=== PATIENT | male | born 1950 | race Caucasian/White ===

== ENCOUNTER 2022-12-28 14:35 | Inpatient (IN) | payer OTHER ==
[2022-12-28 17:02] LABS: BASO % 0.6 % (0-2.0); EOS % 0.2 % (0-4.5); HEMATOCRIT 41.3 % (35.4-49); HEMOGLOBIN 13.4 GM/dL (11.7-16.9); LYMPH % 13.9 % (8-40); MCH 30.3 pg (25.7-33.7); MCHC 32.4 g/dl (32.0-35.9); MEAN CELL VOLUME 93.4 fl (80-96); MEAN PLT VOLUME 8.9 fl (7.5-11.1); MONO % 6.9 % (3.8-10.2); NEUT % 78.4 % (42.8-82.8); PLATELET COUNT 156 10^3/uL (134-434); RBC 4.42 M/mm3 (4.00-5.60); WHITE BLOOD COUNT 6.9 K/mm3 (4.0-10.0)
[2022-12-28 17:12] LABS: CHLORIDE 105 mmol/L (98-107); POTASSIUM 4.4 mmol/L (3.5-5.1); SODIUM 141 mmol/L (136-145)
[2022-12-28 17:16] LABS: ALBUMIN 3.7 g/dl (3.4-5.0); ANION GAP 12 MMOL/L (8-16); CALCIUM 10.1 mg/dL (8.5-10.1); CO2 23 mmol/L (21-32); GLUCOSE,RANDOM 89 mg/dL (74-106)
[2022-12-28 17:17] LABS: BLOOD UREA NITROGEN 20.6 mg/dL (7-18)
[2022-12-28 17:19] LABS: CREATININE 2.3 mg/dL (0.55-1.3); SGPT/ALT 12 U/L (13-61)
[2022-12-28 17:20] LABS: SGOT/AST 12 U/L (15-37)
[2022-12-28 17:21] LABS: BILIRUBIN,TOTAL 0.9 mg/dL (0.2-1); TOT PROT 7.9 g/dl (6.4-8.2)
[2022-12-28 17:22] LABS: ALK PHOS 83 U/L (45-117)
[2022-12-28] MEDS ORDERED: LACTATED RINGERS SOLUTION 1000 ML INFUS.BAG IV ONE (17:27)
[2022-12-28] MEDS ORDERED: MAGNESIUM SULF 50% (8.12 MEQ/2 ML-1 GM VIAL) IVPB ONE (17:33)
[2022-12-28] MEDS ORDERED: MAGNESIUM SULF 50% (8.12 MEQ/2 ML-1 GM VIAL) ONE (17:45)
[2022-12-28] MEDS ORDERED: LORazepam 2 MG/ML SDV VIAL IVPUSH ONE (21:22)
[2022-12-28] MEDS ORDERED: LORazepam 1 MG TABLET PO PRN (21:24)
[2022-12-28] MEDS ORDERED: THIAMINE HCL 200 MG/2 ML VIAL ONE (21:36)
[2022-12-28] MEDS ORDERED: FOLIC ACID 1 MG TABLET (FP) ONE (21:37)
[2022-12-28 21:42] LABS: CHOLESTEROL 226 mg/dL (50-200)
[2022-12-28 21:43] LABS: LDL CHOLESTEROL (ONLY SJRH) 142 mg/dL (5-100)
[2022-12-28 21:44] LABS: HDL CHOLESTEROL 59 mg/dL (40-60)
[2022-12-28] MEDS: FOLIC ACID 1 MG TABLET (FP) PO SCH (21:52)
[2022-12-28] MEDS: THIAMINE HCL 200 MG/2 ML VIAL IVPB SCH (21:52)
[2022-12-28] MEDS: HEPARIN NA (PORCINE) 5,000 UNITS/ML 1ML VIAL SQ SCH (22:27)
[2022-12-29] MEDS: LORazepam 1 MG TABLET PO SCH ×5 (00:01→23:26)
[2022-12-29] MEDS ORDERED: NICOTINE 21 MG/24 HOURS TOPICAL PATCH ONE (01:56)
[2022-12-29] MEDS ORDERED: hydrALAZINE HCL 20 MG/ML VIAL IVPUSH ONE (02:38)
[2022-12-29] MEDS ORDERED: NIFEdipine E.R. 30 MG TABLET PO SCH (02:39)
[2022-12-29] MEDS ORDERED: NIFEdipine E.R. 30 MG TABLET PO ONE (02:50)
[2022-12-29] MEDS: NICOTINE 21 MG/24 HOURS TOPICAL PATCH TD SCH ×2 (03:01→11:07)
[2022-12-29] MEDS ORDERED: LORazepam 2 MG/ML SDV VIAL IVPUSH ONE (03:24)
[2022-12-29] MEDS ORDERED: LORazepam 2 MG/ML SDV VIAL IVPUSH PRN ×2 (04:29→15:15)
[2022-12-29] MEDS ORDERED: THIAMINE HCL 200 MG/2 ML VIAL ONE ×2 (05:23→14:24)
[2022-12-29] MEDS ORDERED: LORazepam 1 MG TABLET ONE ×2 (05:23→14:48)
[2022-12-29] MEDS ORDERED: HEPARIN NA (PORCINE) 5,000 UNITS/ML 1ML VIAL ONE ×2 (05:24→14:25)
[2022-12-29] MEDS: THIAMINE HCL 200 MG/2 ML VIAL IVPB SCH ×3 (05:29→22:35)
[2022-12-29] MEDS: HEPARIN NA (PORCINE) 5,000 UNITS/ML 1ML VIAL SQ SCH ×3 (05:29→22:33)
[2022-12-29] MEDS ORDERED: FOLIC ACID 1 MG TABLET (FP) ONE (09:57)
[2022-12-29] MEDS ORDERED: LACTATED RINGERS SOLUTION 1,000 ML/1,000 ML INFUS.BAG IV SCH ×2 (10:15→15:15)
[2022-12-29] MEDS: hydrALAZINE HCL 20 MG/ML VIAL IVPUSH PRN ×2 (11:00→14:54)
[2022-12-29] MEDS: FOLIC ACID 1 MG TABLET (FP) PO SCH (11:06)
[2022-12-29] MEDS ORDERED: hydrALAZINE HCL 20 MG/ML VIAL ONE ×2 (11:12→14:48)
[2022-12-29 12:01] LABS: HEMATOCRIT 41.6 % (35.4-49); HEMOGLOBIN 13.3 GM/dL (11.7-16.9); MCH 30.1 pg (25.7-33.7); MCHC 32.1 g/dl (32.0-35.9); MEAN CELL VOLUME 93.7 fl (80-96); MEAN PLT VOLUME 9.2 fl (7.5-11.1); PLATELET COUNT 135 10^3/uL (134-434); RBC 4.44 M/mm3 (4.00-5.60); RDW 16.7 % (11.9-15.9); WHITE BLOOD COUNT 7.1 K/mm3 (4.0-10.0)
[2022-12-29 12:26] LABS: POTASSIUM 3.4 mmol/L (3.5-5.1)
[2022-12-29 12:28] LABS: CALCIUM 9.6 mg/dL (8.5-10.1)
[2022-12-29 12:29] LABS: ALBUMIN 3.5 g/dl (3.4-5.0); BLOOD UREA NITROGEN 18.2 mg/dL (7-18); MAGNESIUM 1.8 mg/dL (1.8-2.4)
[2022-12-29 12:32] LABS: CREATININE 1.8 mg/dL (0.55-1.3)
[2022-12-29 12:33] LABS: TOT PROT 7.4 g/dl (6.4-8.2)
[2022-12-29 12:34] LABS: BILIRUBIN,TOTAL 0.8 mg/dL (0.2-1)
[2022-12-29] MEDS ORDERED: POTASSIUM CHLORIDE ORAL LIQUID 20 MEQ/15 ML PO ONE (13:00)
[2022-12-29] MEDS ORDERED: POTASSIUM CHLORIDE ORAL LIQUID 20 MEQ/15 ML ONE (14:24)
[2022-12-29] MEDS ORDERED: hydrALAZINE HCL 20 MG/ML VIAL IVPUSH PRN (15:15)
[2022-12-29] MEDS ORDERED: LORazepam 1 MG TABLET PO PRN (15:15)
[2022-12-29 15:30] LABS: PH,URINE 5.5 (5.0-8.0); URINE APPEARANCE CLEAR; URINE BILIRUBIN NEGATIVE (NEGATIVE); URINE COLOR YELLOW; URINE GLUCOSE (UA) NEGATIVE (NEGATIVE); URINE KETONE 1+ (NEGATIVE); URINE LEUK ESTERASE NEGATIVE (NEGATIVE); URINE NITRITE NEGATIVE (NEGATIVE); URINE PROTEIN TRACE (NEGATIVE)
[2022-12-29 15:49] LABS: OPIATES, URI NEGATIVE (NEGATIVE); PHENCYCLIDINE,URINE NEGATIVE (NEGATIVE); URINE BARBITURATES NEGATIVE (NEGATIVE); URINE BENZODIAZEPINES NEGATIVE (NEGATIVE)
[2022-12-29 15:50] LABS: COCAINE, UR NEGATIVE (NEGATIVE); METHADONE, UR NEGATIVE (NEGATIVE); URINE AMPHETAMINES NEGATIVE (NEGATIVE)
[2022-12-29 15:52] VITALS: BMI 22.3
[2022-12-30] MEDS ORDERED: LORazepam 1 MG TABLET PO SCH (05:00)
[2022-12-30] MEDS: LORazepam 1 MG TABLET PO SCH ×4 (06:55→22:08)
[2022-12-30] MEDS: HEPARIN NA (PORCINE) 5,000 UNITS/ML 1ML VIAL SQ SCH ×3 (06:55→21:53)
[2022-12-30] MEDS: THIAMINE HCL 200 MG/2 ML VIAL IVPB SCH ×2 (07:14→14:38)
[2022-12-30] MEDS: NICOTINE 21 MG/24 HOURS TOPICAL PATCH TD SCH (09:29)
[2022-12-30] MEDS: NIFEdipine E.R. 30 MG TABLET PO SCH (09:29)
[2022-12-30] MEDS: FOLIC ACID 1 MG TABLET (FP) PO SCH (09:29)
[2022-12-30] MEDS ORDERED: hydrALAZINE HCL 20 MG/ML VIAL IVPB PRN (09:56)
[2022-12-30] MEDS ORDERED: POTASSIUM CHLORIDE TABS 20 MEQ TABLET.ER (FP) PO ONE (09:59)
[2022-12-30] MEDS: hydrALAZINE HCL 25 MG TABLET (FP) PO SCH ×2 (14:37→21:52)
[2022-12-31] MEDS ORDERED: LORazepam 0.5 MG TABLET PO PRN ×2
[2022-12-31] MEDS ORDERED: LORazepam 0.5 MG TABLET PO SCH (05:00)
[2022-12-31] MEDS: LORazepam 0.5 MG TABLET PO SCH ×4 (06:15→22:55)
[2022-12-31] MEDS: hydrALAZINE HCL 25 MG TABLET (FP) PO SCH ×3 (06:16→22:09)
[2022-12-31] MEDS: HEPARIN NA (PORCINE) 5,000 UNITS/ML 1ML VIAL SQ SCH ×3 (06:16→22:09)
[2022-12-31 07:44] LABS: EOS % 0.7 % (0-4.5); HEMATOCRIT 42.6 % (35.4-49); LYMPH % 31.1 % (8-40); MCH 31.2 pg (25.7-33.7); MCHC 32.9 g/dl (32.0-35.9); MEAN CELL VOLUME 94.9 fl (80-96); MEAN PLT VOLUME 9.2 fl (7.5-11.1); MONO % 11.8 % (3.8-10.2); NEUT % 55.4 % (42.8-82.8); PLATELET COUNT 158 10^3/uL (134-434); RBC 4.49 M/mm3 (4.00-5.60); RDW 16.7 % (11.9-15.9); WHITE BLOOD COUNT 6.6 K/mm3 (4.0-10.0)
[2022-12-31 08:29] LABS: POTASSIUM 4.2 mmol/L (3.5-5.1)
[2022-12-31 08:34] LABS: CALCIUM 9.7 mg/dL (8.5-10.1)
[2022-12-31 08:35] LABS: ALBUMIN 3.8 g/dl (3.4-5.0); BLOOD UREA NITROGEN 9.1 mg/dL (7-18); MAGNESIUM 1.4 mg/dL (1.8-2.4)
[2022-12-31 08:38] LABS: CREATININE 1.9 mg/dL (0.55-1.3)
[2022-12-31 08:39] LABS: TOT PROT 8.1 g/dl (6.4-8.2)
[2022-12-31 08:40] LABS: BILIRUBIN,TOTAL 0.7 mg/dL (0.2-1)
[2022-12-31] MEDS: MAGNESIUM OXIDE 400 MG TABLET (FP) PO SCH ×2 (09:48→22:09)
[2022-12-31] MEDS: FOLIC ACID 1 MG TABLET (FP) PO SCH (09:48)
[2022-12-31] MEDS: NIFEdipine E.R. 30 MG TABLET PO SCH (09:48)
[2022-12-31] MEDS: NICOTINE 21 MG/24 HOURS TOPICAL PATCH TD SCH (09:48)
[2023-01-01] MEDS ORDERED: LORazepam 0.5 MG TABLET PO ONE ×2 (05:00)
[2023-01-01] MEDS: hydrALAZINE HCL 25 MG TABLET (FP) PO SCH ×2 (05:35→15:00)
[2023-01-01] MEDS: HEPARIN NA (PORCINE) 5,000 UNITS/ML 1ML VIAL SQ SCH ×4 (05:36→21:43)
[2023-01-01 10:13] LABS: BASO % 0.9 % (0-2.0); EOS % 1.1 % (0-4.5); HEMATOCRIT 44.7 % (35.4-49); HEMOGLOBIN 14.9 GM/dL (11.7-16.9); LYMPH % 37.2 % (8-40); MCH 31.9 pg (25.7-33.7); MCHC 33.3 g/dl (32.0-35.9); MEAN CELL VOLUME 95.6 fl (80-96); MEAN PLT VOLUME 9.3 fl (7.5-11.1); MONO % 11.6 % (3.8-10.2); NEUT % 49.2 % (42.8-82.8); PLATELET COUNT 126 10^3/uL (134-434); RBC 4.67 M/mm3 (4.00-5.60); RDW 16.6 % (11.9-15.9); WHITE BLOOD COUNT 7.5 K/mm3 (4.0-10.0)
[2023-01-01 10:19] LABS: POTASSIUM 4.2 mmol/L (3.5-5.1)
[2023-01-01 10:22] LABS: ALBUMIN 3.8 g/dl (3.4-5.0); CALCIUM 9.7 mg/dL (8.5-10.1); MAGNESIUM 1.9 mg/dL (1.8-2.4)
[2023-01-01 10:27] LABS: BILIRUBIN,TOTAL 0.9 mg/dL (0.2-1); TOT PROT 8.1 g/dl (6.4-8.2)
[2023-01-01] MEDS: FOLIC ACID 1 MG TABLET (FP) PO SCH (10:57)
[2023-01-01] MEDS: MAGNESIUM OXIDE 400 MG TABLET (FP) PO SCH (10:58)
[2023-01-01] MEDS: NIFEdipine E.R. 30 MG TABLET PO SCH (10:58)
[2023-01-01] MEDS: NICOTINE 21 MG/24 HOURS TOPICAL PATCH TD SCH (10:59)
[2023-01-01] MEDS: ATORVASTATIN CA 80 MG TABLET (FP) PO SCH (21:36)
[2023-01-01] MEDS: THIAMINE HCL 100 MG TABLET (FP) PO SCH (21:36)
[2023-01-02] MEDS: HEPARIN NA (PORCINE) 5,000 UNITS/ML 1ML VIAL SQ SCH ×5 (05:42→21:12)
[2023-01-02 09:27] LABS: BASO % 1.1 % (0-2.0); EOS % 1.1 % (0-4.5); HEMATOCRIT 44.5 % (35.4-49); HEMOGLOBIN 14.5 GM/dL (11.7-16.9); MCH 30.8 pg (25.7-33.7); MCHC 32.5 g/dl (32.0-35.9); MEAN CELL VOLUME 94.8 fl (80-96); MEAN PLT VOLUME 9.2 fl (7.5-11.1); NEUT % 38.8 % (42.8-82.8); PLATELET COUNT 159 10^3/uL (134-434); RDW 16.8 % (11.9-15.9); WHITE BLOOD COUNT 6.5 K/mm3 (4.0-10.0)
[2023-01-02] MEDS: ASPIRIN COATED 81 MG TABLET.EC PO SCH (09:57)
[2023-01-02] MEDS: MULTIVITAMINS (DAILY MVI) TABLET (FP) PO SCH (09:57)
[2023-01-02] MEDS: FOLIC ACID 1 MG TABLET (FP) PO SCH (09:58)
[2023-01-02] MEDS: NICOTINE 21 MG/24 HOURS TOPICAL PATCH TD SCH (09:58)
[2023-01-02] MEDS: LOSARTAN POTASSIUM 25 MG TABLET PO SCH (09:58)
[2023-01-02] MEDS: amLODIPine BESYLATE 10 MG TABLET (FP) PO SCH (09:58)
[2023-01-02 10:00] LABS: ALBUMIN 3.7 g/dl (3.4-5.0); BLOOD UREA NITROGEN 17.4 mg/dL (7-18)
[2023-01-02 10:01] LABS: MAGNESIUM 2.1 mg/dL (1.8-2.4)
[2023-01-02 10:04] LABS: TOT PROT 8.2 g/dl (6.4-8.2)
[2023-01-02 10:05] LABS: BILIRUBIN,TOTAL 0.8 mg/dL (0.2-1)
[2023-01-02] MEDS ORDERED: LORazepam 2 MG TABLET PO PRN (14:09)
[2023-01-02] MEDS: LORazepam 0.5 MG TABLET PO PRN ×2 (15:27→21:06)
[2023-01-02] MEDS: THIAMINE HCL 100 MG TABLET (FP) PO SCH (21:06)
[2023-01-02] MEDS: ATORVASTATIN CA 80 MG TABLET (FP) PO SCH (21:06)
[2023-01-02] MEDS ORDERED: LORazepam 2 MG/ML SDV VIAL IVPUSH ONE (22:47)
[2023-01-03] MEDS: HEPARIN NA (PORCINE) 5,000 UNITS/ML 1ML VIAL SQ SCH ×3 (05:30→21:27)
[2023-01-03] MEDS: FOLIC ACID 1 MG TABLET (FP) PO SCH (09:44)
[2023-01-03] MEDS: LOSARTAN POTASSIUM 25 MG TABLET PO SCH (09:44)
[2023-01-03] MEDS: ASPIRIN COATED 81 MG TABLET.EC PO SCH (09:44)
[2023-01-03] MEDS: amLODIPine BESYLATE 10 MG TABLET (FP) PO SCH (09:44)
[2023-01-03] MEDS: NICOTINE 21 MG/24 HOURS TOPICAL PATCH TD SCH (09:44)
[2023-01-03] MEDS: MULTIVITAMINS (DAILY MVI) TABLET (FP) PO SCH (09:44)
[2023-01-03 16:26] LABS: POTASSIUM 3.8 mmol/L (3.5-5.1)
[2023-01-03 16:28] LABS: CALCIUM 9.5 mg/dL (8.5-10.1)
[2023-01-03 16:29] LABS: ALBUMIN 3.4 g/dl (3.4-5.0); BLOOD UREA NITROGEN 31.2 mg/dL (7-18)
[2023-01-03 16:32] LABS: CREATININE 3.7 mg/dL (0.55-1.3)
[2023-01-03 16:33] LABS: BILIRUBIN,TOTAL 0.3 mg/dL (0.2-1)
[2023-01-03 16:34] LABS: TOT PROT 7.2 g/dl (6.4-8.2)
[2023-01-03 18:28] VITALS: RESP 20
[2023-01-03] MEDS: ATORVASTATIN CA 80 MG TABLET (FP) PO SCH (21:28)
[2023-01-03] MEDS: THIAMINE HCL 100 MG TABLET (FP) PO SCH (21:28)
[2023-01-03] MEDS: LORazepam 0.5 MG TABLET PO PRN (23:42)
[2023-01-04 03:14] VITALS: TEMP 98.2
[2023-01-04] MEDS: HEPARIN NA (PORCINE) 5,000 UNITS/ML 1ML VIAL SQ SCH ×2 (05:46→14:25)
[2023-01-04 09:34] LABS: BASO % 0.8 % (0-2.0); EOS % 1.3 % (0-4.5); HEMATOCRIT 40.1 % (35.4-49); HEMOGLOBIN 12.9 GM/dL (11.7-16.9); LYMPH % 36.2 % (8-40); MCH 30.5 pg (25.7-33.7); MCHC 32.2 g/dl (32.0-35.9); MEAN CELL VOLUME 94.7 fl (80-96); MEAN PLT VOLUME 9.3 fl (7.5-11.1); MONO % 8.9 % (3.8-10.2); NEUT % 52.8 % (42.8-82.8); PLATELET COUNT 146 10^3/uL (134-434); RBC 4.23 M/mm3 (4.00-5.60); RDW 15.9 % (11.9-15.9); WHITE BLOOD COUNT 6.4 K/mm3 (4.0-10.0)
[2023-01-04 09:46] LABS: POTASSIUM 3.8 mmol/L (3.5-5.1)
[2023-01-04 09:49] LABS: ALBUMIN 3.2 g/dl (3.4-5.0); BLOOD UREA NITROGEN 34.3 mg/dL (7-18); CALCIUM 8.9 mg/dL (8.5-10.1)
[2023-01-04 09:52] LABS: CREATININE 3.2 mg/dL (0.55-1.3)
[2023-01-04 09:53] LABS: TOT PROT 6.8 g/dl (6.4-8.2)
[2023-01-04 09:55] LABS: BILIRUBIN,TOTAL 0.5 mg/dL (0.2-1)
[2023-01-04] MEDS: amLODIPine BESYLATE 10 MG TABLET (FP) PO SCH (10:05)
[2023-01-04] MEDS: NICOTINE 21 MG/24 HOURS TOPICAL PATCH TD SCH (10:05)
[2023-01-04] MEDS: LORazepam 0.5 MG TABLET PO PRN (10:05)
[2023-01-04] MEDS: ASPIRIN COATED 81 MG TABLET.EC PO SCH (10:06)
[2023-01-04] MEDS: FOLIC ACID 1 MG TABLET (FP) PO SCH (10:06)
[2023-01-04] MEDS: MULTIVITAMINS (DAILY MVI) TABLET (FP) PO SCH (10:06)
[2023-01-04 10:33] VITALS: BP 148/84; PULSE 94
[2023-01-04] MEDS ORDERED: SODIUM CHLORIDE 0.45% 1,000 ML IV SCH (14:15)
== END 2023-01-04 15:03 | DRG 312 ==
LOC: JER 14:35 → JERBED 20:09 → OBSVTOIN 21:13 → J8W 12-29 15:02
PROVIDERS: ADMIT Internal Medicine; ATTEND Nurse Practitioner Family
DX: R55 Syncope and collapse (principal); I12.9 Hypertensive chronic kidney disease with stage 1 through stage 4 chronic kidney disease, or unspecified chronic kidney disease; N18.9 Chronic kidney disease, unspecified; F17.210 Nicotine dependence, cigarettes, uncomplicated; R53.1 Weakness; R42 Dizziness and giddiness; E78.5 Hyperlipidemia, unspecified
CPT/HCPCS: 36415; 70450-TC; 71046-TC-FY; 72125-TC; 72170-TC-FY; 76775-TC; 80053; 80061; 80307; 81003; 82550; 83735; 84443; 84484; 85025; 85027; 87086; 87635; 93005; 93010; 93306-TC; 93880-TC; 97116-GP; 97161-GP; 99285-25; G0378; J1644

== ENCOUNTER 2024-01-21 09:07 | Observation (INO) | payer OTHER ==
[2024-01-21] MEDS: SODIUM CHLORIDE 1,000 ML IV STA (10:20)
[2024-01-21 10:33] LABS: BASO % 0.2 % (0-2.0); HEMATOCRIT 45.6 % (35.4-49); HEMOGLOBIN 14.9 GM/dL (11.7-16.9); LYMPH % 8.3 % (8-40); MCH 29.2 pg (25.7-33.7); MCHC 32.6 g/dl (32.0-35.9); MEAN CELL VOLUME 89.3 fl (80-96); MONO % 3.7 % (3.8-10.2); NEUT % 87.8 % (42.8-82.8); PLATELET COUNT 145 10^3/uL (134-434); RDW 15.4 % (11.9-15.9); WHITE BLOOD COUNT 9.7 K/mm3 (4.0-10.0)
[2024-01-21 10:39] LABS: INR 0.96 (0.83-1.09); PROTHROMBIN TIME (PATIENT) 11.1 SEC (9.7-13.0)
[2024-01-21 10:42] LABS: ACTIVATED PTT 33.3 SECONDS (25.2-36.5)
[2024-01-21 11:01] LABS: CHLORIDE 102 mmol/L (98-107); SODIUM 136 mmol/L (136-145)
[2024-01-21 11:02] LABS: MAGNESIUM 2.3 mg/dL (1.8-2.4); POTASSIUM 9.5 mmol/L (3.5-5.1)
[2024-01-21 11:03] LABS: CALCIUM 8.8 mg/dL (8.5-10.1)
[2024-01-21 11:04] LABS: ALBUMIN 3.7 g/dl (3.4-5.0); ANION GAP 18 mmol/L (4-13); BLOOD UREA NITROGEN 37.6 mg/dL (7-18); CO2 16 mmol/L (21-32); GLUCOSE,RANDOM 110 mg/dL (74-106)
[2024-01-21 11:07] LABS: CREATININE 2.4 mg/dL (0.55-1.3); SGOT/AST 104 U/L (15-37)
[2024-01-21 11:09] LABS: BILIRUBIN,TOTAL 0.7 mg/dL (0.2-1); TOT PROT 8.7 g/dl (6.4-8.2)
[2024-01-21 11:10] LABS: ALK PHOS 85 U/L (45-117)
[2024-01-21 11:12] LABS: SGPT/ALT 26 U/L (13-61)
[2024-01-21] MEDS: LACTATED RINGERS SOLUTION 1000 ML INFUS.BAG IV ONE (11:30)
[2024-01-21 11:44] LABS: CHLORIDE 106 mmol/L (98-107); POTASSIUM 4.7 mmol/L (3.5-5.1); SODIUM 142 mmol/L (136-145)
[2024-01-21 11:46] LABS: CALCIUM 8.4 mg/dL (8.5-10.1)
[2024-01-21 11:47] LABS: ALBUMIN 3.4 g/dl (3.4-5.0); ANION GAP 22 mmol/L (4-13); BLOOD UREA NITROGEN 35.6 mg/dL (7-18); CO2 15 mmol/L (21-32); GLUCOSE,RANDOM 101 mg/dL (74-106)
[2024-01-21 11:50] LABS: CREATININE 2.1 mg/dL (0.55-1.3); SGOT/AST 45 U/L (15-37); SGPT/ALT 19 U/L (13-61)
[2024-01-21 11:52] LABS: BILIRUBIN,TOTAL 0.7 mg/dL (0.2-1); TOT PROT 7.3 g/dl (6.4-8.2)
[2024-01-21 11:53] LABS: ALK PHOS 76 U/L (45-117)
[2024-01-21 13:09] LABS: COCAINE, UR NEGATIVE (NEGATIVE); METHADONE, UR NEGATIVE (NEGATIVE); OPIATES, URI NEGATIVE (NEGATIVE); PHENCYCLIDINE,URINE NEGATIVE (NEGATIVE); URINE AMPHETAMINES NEGATIVE (NEGATIVE); URINE BARBITURATES NEGATIVE (NEGATIVE); URINE BENZODIAZEPINES NEGATIVE (NEGATIVE)
[2024-01-21] MEDS: LACTATED RINGERS SOLUTION 1,000 ML/1,000 ML INFUS.BAG IV SCH (14:50)
[2024-01-21] MEDS: amLODIPine BESYLATE 10 MG TABLET (FP) PO SCH (17:58)
[2024-01-21] MEDS: HEPARIN NA (PORCINE) 5,000 UNITS/ML 1ML VIAL SQ SCH (21:42)
[2024-01-21] MEDS: ATORVASTATIN CA 80 MG TABLET (FP) PO SCH (21:42)
[2024-01-22] MEDS: THIAMINE HCL 200 MG/2 ML VIAL IVPB SCH (09:12)
[2024-01-22 09:58] LABS: BASO % 0.5 % (0-2.0); EOS % 0.4 % (0-4.5); HEMATOCRIT 42.5 % (35.4-49); HEMOGLOBIN 14.1 GM/dL (11.7-16.9); LYMPH % 30.4 % (8-40); MCH 29.5 pg (25.7-33.7); MCHC 33.2 g/dl (32.0-35.9); MEAN CELL VOLUME 88.9 fl (80-96); MEAN PLT VOLUME 8.5 fl (7.5-11.1); MONO % 7.5 % (3.8-10.2); NEUT % 61.2 % (42.8-82.8); PLATELET COUNT 130 10^3/uL (134-434); RBC 4.79 M/mm3 (4.00-5.60); RDW 14.7 % (11.9-15.9); WHITE BLOOD COUNT 8.4 K/mm3 (4.0-10.0)
[2024-01-22] MEDS: FOLIC ACID 1 MG TABLET (FP) PO SCH (09:58)
[2024-01-22] MEDS ORDERED: amLODIPine BESYLATE 10 MG TABLET (FP) PO SCH (10:00)
[2024-01-22] MEDS: ASPIRIN COATED 81 MG TABLET.EC PO SCH (10:14)
[2024-01-22 10:16] LABS: BLOOD UREA NITROGEN 31.8 mg/dL (7-18); CALCIUM 8.7 mg/dL (8.5-10.1)
[2024-01-22 10:20] LABS: CREATININE 1.9 mg/dL (0.55-1.3)
[2024-01-23 09:33] LABS: BASO % 0.7 % (0-2.0); EOS % 0.7 % (0-4.5); HEMATOCRIT 40.2 % (35.4-49); HEMOGLOBIN 13.3 GM/dL (11.7-16.9); LYMPH % 31.6 % (8-40); MCH 29.5 pg (25.7-33.7); MCHC 33.2 g/dl (32.0-35.9); MEAN CELL VOLUME 89.1 fl (80-96); MEAN PLT VOLUME 8.4 fl (7.5-11.1); MONO % 9.4 % (3.8-10.2); NEUT % 57.6 % (42.8-82.8); PLATELET COUNT 122 10^3/uL (134-434); RBC 4.51 M/mm3 (4.00-5.60); RDW 14.7 % (11.9-15.9); WHITE BLOOD COUNT 6.6 K/mm3 (4.0-10.0)
[2024-01-23 09:39] LABS: POTASSIUM 4.3 mmol/L (3.5-5.1)
[2024-01-23 09:45] LABS: BLOOD UREA NITROGEN 24.1 mg/dL (7-18); CALCIUM 8.8 mg/dL (8.5-10.1); MAGNESIUM 1.7 mg/dL (1.8-2.4)
[2024-01-23 09:47] LABS: CREATININE 1.9 mg/dL (0.55-1.3)
[2024-01-23 09:48] LABS: TOT PROT 6.5 g/dl (6.4-8.2)
[2024-01-23 09:49] LABS: BILIRUBIN,TOTAL 0.8 mg/dL (0.2-1)
[2024-01-23] MEDS: LOSARTAN POTASSIUM 25 MG TABLET PO SCH (09:49)
[2024-01-23] MEDS: NAPH,MB-DB/K PH,MBDB POWDER PACKET PO SCH (12:13)
[2024-01-23] MEDS: MAGNESIUM 2GM/50ML STERILE WATER IVPB IVPB ONE (12:13)
[2024-01-23] MEDS: MEMANTINE HCL 5 MG TABLET (UD) PO SCH (21:24)
[2024-01-24] MEDS: HALOPERIDOL 0.5 MG TABLET PO ONE (07:00)
[2024-01-24 10:08] LABS: BASO % 0.9 % (0-2.0); EOS % 2.1 % (0-4.5); HEMATOCRIT 41.6 % (35.4-49); HEMOGLOBIN 13.6 GM/dL (11.7-16.9); LYMPH % 46.1 % (8-40); MCH 28.9 pg (25.7-33.7); MCHC 32.6 g/dl (32.0-35.9); MEAN CELL VOLUME 88.5 fl (80-96); MEAN PLT VOLUME 8.7 fl (7.5-11.1); NEUT % 40.9 % (42.8-82.8); PLATELET COUNT 138 10^3/uL (134-434); WHITE BLOOD COUNT 5.5 K/mm3 (4.0-10.0)
[2024-01-24 10:22] LABS: POTASSIUM 4.3 mmol/L (3.5-5.1)
[2024-01-24 10:23] LABS: CALCIUM 9.1 mg/dL (8.5-10.1)
[2024-01-24 10:24] LABS: ALBUMIN 3.3 g/dl (3.4-5.0); BLOOD UREA NITROGEN 18.2 mg/dL (7-18); MAGNESIUM 2.1 mg/dL (1.8-2.4)
[2024-01-24 10:27] LABS: CREATININE 1.7 mg/dL (0.55-1.3); PHOSPHOROUS 2.6 mg/dL (2.5-4.9)
[2024-01-24 10:28] LABS: BILIRUBIN,TOTAL 0.9 mg/dL (0.2-1)
[2024-01-24 10:29] LABS: TOT PROT 6.8 g/dl (6.4-8.2)
[2024-01-24] MEDS: MELATONIN 5 MG TABLETS PO SCH (21:52)
[2024-01-24] MEDS: QUEtiapine FUMARATE 25 MG TABLET PO SCH (21:53)
[2024-01-25 09:57] LABS: EOS % 2.1 % (0-4.5); LYMPH % 44.8 % (8-40); MCH 29.3 pg (25.7-33.7); MCHC 32.5 g/dl (32.0-35.9); MEAN CELL VOLUME 90.1 fl (80-96); MEAN PLT VOLUME 8.5 fl (7.5-11.1); MONO % 9.8 % (3.8-10.2); NEUT % 42.3 % (42.8-82.8); PLATELET COUNT 128 10^3/uL (134-434); RBC 4.78 M/mm3 (4.00-5.60); RDW 15.1 % (11.9-15.9); WHITE BLOOD COUNT 6.6 K/mm3 (4.0-10.0)
[2024-01-25 10:17] LABS: POTASSIUM 4.4 mmol/L (3.5-5.1)
[2024-01-25 10:21] LABS: ALBUMIN 3.3 g/dl (3.4-5.0); CALCIUM 9.1 mg/dL (8.5-10.1)
[2024-01-25 10:25] LABS: CREATININE 1.5 mg/dL (0.55-1.3); PHOSPHOROUS 2.6 mg/dL (2.5-4.9)
[2024-01-25 10:26] LABS: TOT PROT 6.9 g/dl (6.4-8.2)
[2024-01-25] MEDS: THIAMINE HCL 200 MG/2 ML VIAL IVPB SCH (10:39)
[2024-01-25] MEDS: LOSARTAN POTASSIUM 25 MG TABLET PO SCH (10:40)
[2024-01-25] MEDS: NICOTINE 21 MG/24 HOURS TOPICAL PATCH TD SCH (10:41)
[2024-01-27 13:05] VITALS: BMI 19.7
[2024-01-27 18:24] VITALS: RESP 18
[2024-01-28 09:07] LABS: HEMATOCRIT 37.4 % (35.4-49); HEMOGLOBIN 12.2 GM/dL (11.7-16.9); MCHC 32.7 g/dl (32.0-35.9); MEAN CELL VOLUME 88.8 fl (80-96); MEAN PLT VOLUME 8.5 fl (7.5-11.1); PLATELET COUNT 175 10^3/uL (134-434); RBC 4.22 M/mm3 (4.00-5.60); RDW 15.2 % (11.9-15.9); WHITE BLOOD COUNT 7.5 K/mm3 (4.0-10.0)
[2024-01-28 09:25] LABS: POTASSIUM 4.2 mmol/L (3.5-5.1)
[2024-01-28 09:26] LABS: CALCIUM 8.9 mg/dL (8.5-10.1)
[2024-01-28 09:27] LABS: BLOOD UREA NITROGEN 25.4 mg/dL (7-18)
[2024-01-28 09:30] LABS: CREATININE 1.8 mg/dL (0.55-1.3)
[2024-01-28 18:15] VITALS: BP 115/77; PULSE 89; TEMP 98.6
== END 2024-01-28 19:23 ==
LOC: JER 09:07 → UNDOADMOB 13:04 → JERBED 13:04 → INTOOBSV 13:04 → J5S 15:19 → JERBED 15:19 → J5S 01-22 13:29 → JERBED 01-22 13:29
PROVIDERS: ADMIT Internal Medicine; ATTEND Internal Medicine
PROC: 3E023GC Introduction of Other Therapeutic Substance into Muscle, Percutaneous Approach (ICD-10-PCS; principal; 2024-01-22)
PROC: 3E0337Z Introduction of Electrolytic and Water Balance Substance into Peripheral Vein, Percutaneous Approach (ICD-10-PCS; 2024-01-22)
DX: I12.9 Hypertensive chronic kidney disease with stage 1 through stage 4 chronic kidney disease, or unspecified chronic kidney disease (principal); E86.0 Dehydration; R41.82 Altered mental status, unspecified; R79.9 Abnormal finding of blood chemistry, unspecified; I10 Essential (primary) hypertension; E87.20 Acidosis, unspecified; E78.5 Hyperlipidemia, unspecified; M62.82 Rhabdomyolysis; R74.8 Abnormal levels of other serum enzymes; R62.51 Failure to thrive (child); T68.XXXA Hypothermia, initial encounter; Z86.73 Personal history of transient ischemic attack (TIA), and cerebral infarction without residual deficits; X58.XXXA Exposure to other specified factors, initial encounter; F17.210 Nicotine dependence, cigarettes, uncomplicated
CPT/HCPCS: 36415; 70450-TC; 70551-TC; 71045-TC-FY; 72125-TC; 80048; 80053; 80307; 82140; 82550; 82553; 82962; 83735; 84100; 84484; 85025; 85027; 85610; 85730; 86850; 86900; 86901; 87635; 93005; 93010; 95816; 96361; 96372; 96374; 96375; 97116-GP; 97162-GP; 99285-25; G0378; J1644